=== PATIENT | female | born 1990 | race African-American/Black ===

== ENCOUNTER 2016-06-16 04:26 | Inpatient (IN) | payer OTHER ==
[~2016-06-16] VITALS: Ht 162.6 cm; Wt 75.7 kg
[~2016-06-16 04:26] MED LIST: NITR100C62 PO; PROM25TA10 PO
[2016-06-16] MEDS ORDERED: IV RINGERS,LACTATED 1000ML 1,000 ML IV SCH ×2 (04:53→11:28)
[2016-06-16 05:03] LABS: BILIRUBIN,URINE NEGATIVE (NEG); GLUCOSE,URINE NEGATIVE (NEG); NITRITE,URINE NEGATIVE (NEG); PH,URINE 6.5; PROTEIN,URINE NEGATIVE (NEG-TRACE)
[2016-06-16 05:11] LABS: BARBITURATES NEG (NEG); BENZODIAZEPINES NEG (NEG); CANNABINOIDS NEG (NEG); COCAINE NEG (NEG); METHADONE NEG (NEG); OPIATES NEG (NEG); PHENCYCLIDINE NEG (NEG)
[2016-06-16 05:16] LABS: BACTERIA,URINE MANY /HPF (0-FEW); SQUAMOUS EPITHELIAL CELL,UR MANY /LPF; WBC,URINE TNTC /HPF (0-4)
[2016-06-16 05:17] LABS: ETHANOL, URINE NEG (NEG)
[2016-06-16 10:03] LABS: BASO # 0.1 x10^3/uL (0.0-0.2); BASO % 1 % (0-3); EOS % 1 % (0-3); HEMATOCRIT 32.1 % (36.0-47.0); HEMOGLOBIN 10.9 g/dL (12.0-15.5); LYMPH # 1.3 x10^3/uL (1.0-4.8); LYMPH % 17 % (24-48); MEAN CORPUSCULAR HEMOGLOBIN 31 pg (25-35); MEAN CORPUSCULAR HGB CONC 34 g/dL (31-37); MEAN CORPUSCULAR VOLUME 91 fL (79-100); MONO % 9 % (0-9); NEUT % 73 % (31-73); PLATELET COUNT 136 x10^3/uL (140-400); RED BLOOD COUNT 3.53 x10^6/uL (3.50-5.40); RED CELL DISTRIBUTION WIDTH 12.8 % (11.5-14.5); WHITE BLOOD COUNT 8.1 x10^3/uL (4.0-11.0)
--- NOTE | 2016-06-16 11:15 | PDOC1 ---
OB - History Hx of Present Care: Good Care Ultrasounds: Normal mid trimester US Obstetrical Complications: None Medical Complications: Other (HSV. No current outbreak or lesions.) Past Family/Social History * Past Medical, Surgical, Family and Obstetric Histories reviewed from chart. Rubella: Immune RPR/VDRL: Negative GBS Status: Negative HBsAG: Negative OB - Chief Complaint & HPI Date of Admission: Date of Admission: Jun 16, 2016 at 04:26 Chief Complaint/History : 3 Para: 2 EGA: 37 Reason for admission: active labor Admission Nurse Assessment Rev: Yes Problems: OB - Admission Exam Physical Exam HEENT: Normal Heart: Regular Rate Lungs: Clear Abdomen: Gravid, Non tender, Soft Extremities: Edema Reflexes: Normal Cervical Dilatation: 3cm Effacement: 75% Station: -2 Membranes: Intact Heart Rate: Normal Accelerations: Accelerations Present Decelerations: No decelerations Contractions on Admission: 6-10 Minutes Apart Intensity: Moderate Text A: 37 wks IUP Active labor H/o HSV; 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 NALLELY VASQUEZ Jr, MD Jun 16, 2016 11:15
[2016-06-16] MEDS ORDERED: LIDOCAINE 1% PF 30 ML VIAL. INJ PRN (11:30)
[2016-06-16] MEDS ORDERED: TERBUTALINE 1 MG/ML VIAL. SQ PRN (11:30)
[2016-06-16] MEDS ORDERED: OXYTOCIN 30 UNIT/500 ML PREMIX 500 ML IV PRN ×2 (11:30→15:00)
[2016-06-16] MEDS ORDERED: 0.9 % SODIUM CHLORIDE 10 ML DISP.SYRIN. IV PRN ×2 (11:30→15:00)
[2016-06-16] MEDS: FENTANYL PF 100 MCG/2 ML VIAL. IV PRN ×2 (11:56→13:51)
[2016-06-16] MEDS ORDERED: OXYTOCIN in NORMAL SALINE PREMIX 30 UNIT/500 ML BAG. IV ONE (12:50)
--- NOTE | 2016-06-16 14:52 | PDOC ---
VAGINAL DELIVERY DATE DATE: 06/16/16 TIME: 14:50 : 4 Para: 3 EGA: 37 VAGINAL DELIVERY: VTX VACCUM ASSISTED: No PLACENTA: Spontaneous 8/9 SEX: Female WEIGHT Weight [ 2795 gm] Nuchal Cord: Yes, Times 1 Amniotic Fluid: Clear PAIN: Natural EPISIOTOMY: No EXTENSION: No EBL 300 ml COMPLICATIONS none CONDITION pt. stable Signs of Intrauterine Infectio: None Shoulder Dystocia: No Problems: NALLELY VASQUEZ Jr, MD Jun 16, 2016 14:52
[2016-06-16] MEDS ORDERED: SIMETHICONE 80 MG TAB.CHEW PO PRN (15:00)
[2016-06-16] MEDS ORDERED: IBUPROFEN 800 MG TABLET. PO PRN (15:00)
[2016-06-16] MEDS ORDERED: MAGNESIUM HYDROXIDE 2,400 MG/30 ML ORAL.SUSP. PO PRN (15:00)
[2016-06-16] MEDS ORDERED: ZOLPIDEM 5 MG TABLET. PO PRN (15:00)
[2016-06-16] MEDS ORDERED: DIPHENHYDRAMINE HCL 25 MG CAPSULE PO PRN (15:00)
[2016-06-16] MEDS ORDERED: HYDROCORTISONE 1% TOPICAL OINTMENT 30GM TUBE. TP PRN (15:00)
[2016-06-16] MEDS ORDERED: MAG HYDROX/ALUMINUM HYD/SIMETH 30 ML ORAL.SUSP PO PRN (15:00)
[2016-06-16] MEDS ORDERED: ACETAMINOPHEN 325 MG TABLET. PO PRN (15:00)
[2016-06-16] MEDS ORDERED: MMR per PROTOCOL. MC PRN (15:00)
[2016-06-16] MEDS ORDERED: PHENYLEPH/MINERAL OIL/PETROLAT RECTAL OINTMENT 28GM TUBE. RC PRN (15:00)
[2016-06-16] MEDS ORDERED: BENZOCAINE 20% TOPICAL AEROSOL SPRAY 57GM CAN. TP PRN (15:00)
[2016-06-16] MEDS: IBUPROFEN 800 MG TABLET. PO PRN (17:08)
[2016-06-16 17:58] VITALS: BP 101/72
[2016-06-16 19:35] VITALS: BP 105/53
[2016-06-16] MEDS: OXYCODONE/APAP 5/325 TABLET. PO PRN ×2 (19:35→20:28)
[2016-06-16 23:50] VITALS: BP 89/43
[2016-06-17 04:25] VITALS: BP 94/59
[2016-06-17 04:32] LABS: BASO % 0 % (0-3); EOS % 1 % (0-3); HEMATOCRIT 30.2 % (36.0-47.0); HEMOGLOBIN 10.1 g/dL (12.0-15.5); LYMPH # 1.6 x10^3/uL (1.0-4.8); LYMPH % 14 % (24-48); MEAN CORPUSCULAR HEMOGLOBIN 31 pg (25-35); MEAN CORPUSCULAR HGB CONC 33 g/dL (31-37); MEAN CORPUSCULAR VOLUME 93 fL (79-100); MONO % 10 % (0-9); NEUT % 76 % (31-73); PLATELET COUNT 126 x10^3/uL (140-400); RED BLOOD COUNT 3.26 x10^6/uL (3.50-5.40); RED CELL DISTRIBUTION WIDTH 12.7 % (11.5-14.5); WHITE BLOOD COUNT 11.7 x10^3/uL (4.0-11.0)
[2016-06-17] MEDS: IBUPROFEN 800 MG TABLET. PO PRN (06:33)
[2016-06-17] MEDS: OXYCODONE/APAP 5/325 TABLET. PO PRN ×3 (06:34→20:21)
--- NOTE | 2016-06-17 07:42 | PDOC ---
OB Progress Note Date of Service 06/17/16 Time of Evaluation 0740 Notes Pt. feeling well. NO complaints. Lochia minimal. Breast feeding. Pain controlled. Lab Laboratory Tests Test 06/16/16 04:45 06/16/16 09:30 06/17/16 03:51 Urine Collection Type Unknown Urine Color Yellow Urine Clarity Clear Urine pH 6.5 Urine Specific [place] 1.015 Urine Protein Negativemg/dL (NEG-TRACE) Urine Glucose (UA) Negativemg/dL (NEG) Urine Ketones (Stick) Negativemg/dL (NEG) Urine Blood Moderate (NEG) Urine Nitrite Negative (NEG) Urine Bilirubin Negative (NEG) Urine Urobilinogen Dipstick 1.0mg/dL (0.2 mg/dL) Urine Leukocyte Esterase Large (NEG) Urine RBC 11-20/HPF (0-2) Urine WBC Tntc/HPF (0-4) Urine Squamous Epithelial Cells Many/LPF Urine Bacteria Many/HPF (0-FEW) Urine Mucus Marked/LPF Urine Opiates Screen Neg (NEG) Urine Methadone Screen Neg (NEG) Urine Barbiturates Neg (NEG) Urine Phencyclidine Screen Neg (NEG) Urine Amphetamine/Methamphetamine Neg (NEG) Urine Benzodiazepines Screen Neg (NEG) Urine Cocaine Screen Neg (NEG) Urine Cannabinoids Screen Neg (NEG) Urine Ethyl Alcohol Neg (NEG) White Blood Count 8.1x10^3/uL (4.0-11.0) 11.7x10^3/uL (4.0-11.0) Red Blood Count 3.53x10^6/uL (3.50-5.40) 3.26x10^6/uL (3.50-5.40) Hemoglobin 10.9g/dL (12.0-15.5) 10.1g/dL (12.0-15.5) Hematocrit 32.1% (36.0-47.0) 30.2% (36.0-47.0) Mean Corpuscular Volume 91fL (79-100) 93fL (79-100) Mean Corpuscular Hemoglobin 31pg (25-35) 31pg (25-35) Mean Corpuscular Hemoglobin Concent 34g/dL (31-37) 33g/dL (31-37) Red Cell Distribution Width 12.8% (11.5-14.5) 12.7% (11.5-14.5) Platelet Count 136x10^3/uL (140-400) 126x10^3/uL (140-400) Neutrophils (%) (Auto) 73% (31-73) 76% (31-73) Lymphocytes (%) (Auto) 17% (24-48) 14% (24-48) Monocytes (%) (Auto) 9% (0-9) 10% (0-9) Eosinophils (%) (Auto) 1% (0-3) 1% (0-3) Basophils (%) (Auto) 1% (0-3) 0% (0-3) Neutrophils # (Auto) 5.9x10^3uL (1.8-7.7) 8.8x10^3uL (1.8-7.7) Lymphocytes # (Auto) 1.3x10^3/uL (1.0-4.8) 1.6x10^3/uL (1.0-4.8) Monocytes # (Auto) 0.7x10^3/uL (0.0-1.1) 1.1x10^3/uL (0.0-1.1) Eosinophils # (Auto) 0.1x10^3/uL (0.0-0.7) 0.1x10^3/uL (0.0-0.7) Basophils # (Auto) 0.1x10^3/uL (0.0-0.2) 0.0x10^3/uL (0.0-0.2) RPR Titer Additional Testing Non reactive (Non Reactive) Laboratory Tests Test 06/16/16 09:30 06/17/16 03:51 White Blood Count 8.1x10^3/uL (4.0-11.0) 11.7x10^3/uL (4.0-11.0) Red Blood Count 3.53x10^6/uL (3.50-5.40) 3.26x10^6/uL (3.50-5.40) Hemoglobin 10.9g/dL (12.0-15.5) 10.1g/dL (12.0-15.5) Hematocrit 32.1% (36.0-47.0) 30.2% (36.0-47.0) Mean Corpuscular Volume 91fL (79-100) 93fL (79-100) Mean Corpuscular Hemoglobin 31pg (25-35) 31pg (25-35) Mean Corpuscular Hemoglobin Concent 34g/dL (31-37) 33g/dL (31-37) Red Cell Distribution Width 12.8% (11.5-14.5) 12.7% (11.5-14.5) Platelet Count 136x10^3/uL (140-400) 126x10^3/uL (140-400) Neutrophils (%) (Auto) 73% (31-73) 76% (31-73) Lymphocytes (%) (Auto) 17% (24-48) 14% (24-48) Monocytes (%) (Auto) 9% (0-9) 10% (0-9) Eosinophils (%) (Auto) 1% (0-3) 1% (0-3) Basophils (%) (Auto) 1% (0-3) 0% (0-3) Neutrophils # (Auto) 5.9x10^3uL (1.8-7.7) 8.8x10^3uL (1.8-7.7) Lymphocytes # (Auto) 1.3x10^3/uL (1.0-4.8) 1.6x10^3/uL (1.0-4.8) Monocytes # (Auto) 0.7x10^3/uL (0.0-1.1) 1.1x10^3/uL (0.0-1.1) Eosinophils # (Auto) 0.1x10^3/uL (0.0-0.7) 0.1x10^3/uL (0.0-0.7) Basophils # (Auto) 0.1x10^3/uL (0.0-0.2) 0.0x10^3/uL (0.0-0.2) RPR Titer Additional Testing Non reactive (Non Reactive) Medications Current Medications Lactated Ringer's (Iv Lactated Ringers) 1,000 ml @ 125 mls/hr Q8H IV Last administered on 06/16/16t 11:56; Start 06/16/16 at 04:53; Stop 06/16/16 at 18:04; Status DC Sodium Chloride 3 ml 3 ml QSHIFT PRN IV AFTER MEDS AND BLOOD DRAWS; Start at 11:30; Stop 06/16/16 at 18:04; Status DC Lactated Ringer's (Iv Lactated Ringers) 1,000 ml @ 125 mls/hr Q8H IV ; Start at 11:28; Stop 06/16/16 at 18:04; Status DC Fentanyl Citrate (Fentanyl 2ml Vial) 100 mcg PRN Q30MIN PRN IV Severe pain Last administered on 06/16/16 13:51; Start 06/16/16 at 11:30; Stop 06/16/16 at 18: 04; Status DC Terbutaline Sulfate (Brethine) 0.25 mg 1X PRN PRN SQ SEE COMMENTS; Start at 11:30; Stop 06/16/16 at 18:04; Status DC Lidocaine HCl 30 ml 30 ml 1X PRN PRN INJ SEE COMMENTS; Start 06/16/16 at 11:30; Stop 06/16/16 at 18:04; Status DC Oxytocin/Sodium Chloride (Oxytocin Premix Infusion) 500 ml @ 0 mls/hr CONT PRN PRN IV Post delivery bleeding; Start 06/16/16 at 11:30; Stop 06/16/16 at 18:04; Status DC Ibuprofen (Motrin) 800 mg PRN Q6HRS PRN PO PAIN Last administered on 06/17/16 06:33; Start 06/16/16 at 11:30 Sodium Chloride 10 ml 10 ml QSHIFT PRN IV AFTER MEDS AND BLOOD DRAWS; Start 06/16/16 at 15:00; Stop 06/16/16 at 18:04; Status DC Oxytocin/Sodium Chloride (Oxytocin Premix Infusion) 500 ml @ 62.5 mls/hr CONT PRN IV SEE I/O RECORD; Start 06/16/16 at 15:00; Stop 06/16/16 at 18:04; Status DC Acetaminophen (Tylenol) 650 mg PRN Q6HRS PRN PO MILD PAIN / TEMP; Start at 15:00 Ibuprofen (Motrin) 800 mg PRN Q8HRS PRN PO INFLAMMATION/PAIN PREVENTION; Start 06/16/16 at 15:00 Docusate Sodium (Colace) 100 mg PRN BID PRN PO CONSTIPATION; Start 06/16/16 at 15:00 Magnesium Hydroxide (Milk Of Magnesia) 2,400 mg PRN DAILY PRN PO CONSTIPATION; Start 06/16/16 at 15:00 Al Hydrox/Mg Hydrox/Simethicone (Mylanta Plus Xs) 30 ml PRN Q4HRS PRN PO HEARTBURN / GAS; Start 06/16/16 at 15:00 Simethicone (Gas-X) 80 mg PRN AFTMEALHC PRN PO GAS / BLOATING; Start 06/16/16 at 15:00 Diphenhydramine HCl (Benadryl) 25 mg PRN Q6HRS PRN PO ITCHING; Start 06/16/16 at 15:00 Benzocaine (Americaine) 1 spray PRN QID PRN TP TOPICAL PAIN Last administered on 06/16/16 17:09; Start 06/16/16 at 15:00 Phenyleph/Shark Oil/Min Oil/Petrol (Preparation H) 1 josette PRN QID PRN RC RECTAL PAIN; Start 06/16/16 at 15:00 Hydrocortisone (Cortaid) 1 josette PRN QID PRN TP PERINEAL PAIN; Start 06/16/16 at 15:00 Ferrous Sulfate (Feosol) 325 mg BIDWMEALS PO ; Start 06/17/16 at 08:00 Zolpidem Tartrate (Ambien) 5 mg PRN QHS PRN PO INSOMNIA, MAY REPEAT X1; Start 06/16/16 at 15:00 Info (Do NOT chart on this placeholder) 1 ea 1X PRN PRN MC SEE COMMENTS; Start 06/16/16 at 15:00; Stop 06/16/16 at 18:04; Status DC Info (Do NOT chart on this placeholder) 1 ea 1X PRN PRN MC SEE COMMENTS; Start 06/16/16 at 15:00; Stop 06/16/16 at 18:04; Status DC Oxycodone/ Acetaminophen (Percocet 5/325) 2 tab PRN Q4HRS PRN PO MODERATE PAIN , SEVERE PAIN Last administered on 06/17/16 06:34; Start 06/16/16 at 15:00 Active Scripts Active Promethazine Hcl 25 Mg Tablet 1 Tab PO PRN Q6HRS Exam Abd: soft, non tender, fundus firm Assessment PPD#1 s/p Plan of Care: Continue current Tx, Mgmt NALLELY VASQUEZ Jr, MD Jun 17, 2016 07:42
[2016-06-17] MEDS ORDERED: FERROUS SULFATE 325 MG TABLET PO SCH (08:00)
[2016-06-17 10:34] VITALS: BP 99/80
[2016-06-17] MEDS: DOCUSATE SODIUM 100 MG CAPSULE PO PRN ×2 (12:35→20:21)
[2016-06-17 20:55] VITALS: BP 121/81
[2016-06-18] MEDS: OXYCODONE/APAP 5/325 TABLET. PO PRN ×2 (00:18→11:19)
[2016-06-18 00:30] VITALS: BP 104/54
[2016-06-18 05:35] VITALS: BP 99/60
[2016-06-18 11:10] VITALS: BP 104/62
[2016-06-18] MEDS: IBUPROFEN 800 MG TABLET. PO PRN (11:18)
--- NOTE | 2016-06-18 14:31 | DISCH ---
DISCHARGE INSTRUCTIONS Condition on Discharge Condition on Discharge: Stable Activity After Discharge Activity Instructions for Disc: Activity as tolerated Lifting Instructions after Dis: No heavy lifting Driving Instructions after Dis: Do not drive today Diet after Discharge Diet after Discharge: Regular Contacting the [facility] after DC Call your doctor for: Concerns you may have Follow-Up Follow up with: Dr. Byers in 6 weeks NALLELY BYERS Jr, MD Jun 18, 2016 14:31
--- NOTE | 2016-06-18 14:31 | PDOC ---
OB Progress Note Date of Service 06/18/16 Time of Evaluation 1430 Notes Pt. feeling well. NO complaints. Lab Laboratory Tests Test 06/17/16 03:51 White Blood Count 11.7x10^3/uL (4.0-11.0) Red Blood Count 3.26x10^6/uL (3.50-5.40) Hemoglobin 10.1g/dL (12.0-15.5) Hematocrit 30.2% (36.0-47.0) Mean Corpuscular Volume 93fL (79-100) Mean Corpuscular Hemoglobin 31pg (25-35) Mean Corpuscular Hemoglobin Concent 33g/dL (31-37) Red Cell Distribution Width 12.7% (11.5-14.5) Platelet Count 126x10^3/uL (140-400) Neutrophils (%) (Auto) 76% (31-73) Lymphocytes (%) (Auto) 14% (24-48) Monocytes (%) (Auto) 10% (0-9) Eosinophils (%) (Auto) 1% (0-3) Basophils (%) (Auto) 0% (0-3) Neutrophils # (Auto) 8.8x10^3uL (1.8-7.7) Lymphocytes # (Auto) 1.6x10^3/uL (1.0-4.8) Monocytes # (Auto) 1.1x10^3/uL (0.0-1.1) Eosinophils # (Auto) 0.1x10^3/uL (0.0-0.7) Basophils # (Auto) 0.0x10^3/uL (0.0-0.2) Medications Current Medications Lactated Ringer's (Iv Lactated Ringers) 1,000 ml @ 125 mls/hr Q8H IV Last administered on 06/16/16t 11:56; Start 06/16/16 at 04:53; Stop 06/16/16 at 18:04; Status DC Sodium Chloride 3 ml 3 ml QSHIFT PRN IV AFTER MEDS AND BLOOD DRAWS; Start at 11:30; Stop 06/16/16 at 18:04; Status DC Lactated Ringer's (Iv Lactated Ringers) 1,000 ml @ 125 mls/hr Q8H IV ; Start at 11:28; Stop 06/16/16 at 18:04; Status DC Fentanyl Citrate (Fentanyl 2ml Vial) 100 mcg PRN Q30MIN PRN IV Severe pain Last administered on 06/16/16 13:51; Start 06/16/16 at 11:30; Stop 06/16/16 at 18: 04; Status DC Terbutaline Sulfate (Brethine) 0.25 mg 1X PRN PRN SQ SEE COMMENTS; Start at 11:30; Stop 06/16/16 at 18:04; Status DC Lidocaine HCl 30 ml 30 ml 1X PRN PRN INJ SEE COMMENTS; Start 06/16/16 at 11:30; Stop 06/16/16 at 18:04; Status DC Oxytocin/Sodium Chloride (Oxytocin Premix Infusion) 500 ml @ 0 mls/hr CONT PRN PRN IV Post delivery bleeding; Start 06/16/16 at 11:30; Stop 06/16/16 at 18:04; Status DC Ibuprofen (Motrin) 800 mg PRN Q6HRS PRN PO PAIN Last administered on 06/18/16 11:18; Start 06/16/16 at 11:30 Sodium Chloride 10 ml 10 ml QSHIFT PRN IV AFTER MEDS AND BLOOD DRAWS; Start 06/16/16 at 15:00; Stop 06/16/16 at 18:04; Status DC Oxytocin/Sodium Chloride (Oxytocin Premix Infusion) 500 ml @ 62.5 mls/hr CONT PRN IV SEE I/O RECORD; Start 06/16/16 at 15:00; Stop 06/16/16 at 18:04; Status DC Acetaminophen (Tylenol) 650 mg PRN Q6HRS PRN PO MILD PAIN / TEMP; Start at 15:00 Ibuprofen (Motrin) 800 mg PRN Q8HRS PRN PO INFLAMMATION/PAIN PREVENTION Last administered on 06/18/16 00:17; Start 06/16/16 at 15:00 Docusate Sodium (Colace) 100 mg PRN BID PRN PO CONSTIPATION Last administered on 06/17/16 20:21; Start 06/16/16 at 15:00 Magnesium Hydroxide (Milk Of Magnesia) 2,400 mg PRN DAILY PRN PO CONSTIPATION; Start 06/16/16 at 15:00 Al Hydrox/Mg Hydrox/Simethicone (Mylanta Plus Xs) 30 ml PRN Q4HRS PRN PO HEARTBURN / GAS; Start 06/16/16 at 15:00 Simethicone (Gas-X) 80 mg PRN AFTMEALHC PRN PO GAS / BLOATING; Start 06/16/16 at 15:00 Diphenhydramine HCl (Benadryl) 25 mg PRN Q6HRS PRN PO ITCHING; Start 06/16/16 at 15:00 Benzocaine (Americaine) 1 spray PRN QID PRN TP TOPICAL PAIN Last administered on 06/16/16 17:09; Start 06/16/16 at 15:00 Phenyleph/Shark Oil/Min Oil/Petrol (Preparation H) 1 josette PRN QID PRN RC RECTAL PAIN; Start 06/16/16 at 15:00 Hydrocortisone (Cortaid) 1 josette PRN QID PRN TP PERINEAL PAIN; Start 06/16/16 at 15:00 Ferrous Sulfate (Feosol) 325 mg BIDWMEALS PO ; Start 06/17/16 at 08:00; Stop 06/17 at 08:00; Status DC Zolpidem Tartrate (Ambien) 5 mg PRN QHS PRN PO INSOMNIA, MAY REPEAT X1; Start 06/16/16 at 15:00 Info (Do NOT chart on this placeholder) 1 ea 1X PRN PRN MC SEE COMMENTS; Start 06/16/16 at 15:00; Stop 06/16/16 at 18:04; Status DC Info (Do NOT chart on this placeholder) 1 ea 1X PRN PRN MC SEE COMMENTS; Start 06/16/16 at 15:00; Stop 06/16/16 at 18:04; Status DC Oxycodone/ Acetaminophen (Percocet 5/325) 2 tab PRN Q4HRS PRN PO MODERATE PAIN , SEVERE PAIN Last administered on 06/18/16 11:19; Start 06/16/16 at 15:00 Oxytocin/Sodium Chloride (Oxytocin Premix Infusion) 30 unit STK-MED ONCE IV ; Start 06/16/16 at 12:50; Stop 06/17/16 at 08:14; Status DC Active Scripts Active Promethazine Hcl 25 Mg Tablet 1 Tab PO PRN Q6HRS Exam Abd: soft, non tender fundus firm Assessment PPD#2 s/p Plan of Care: See new orders (D/c home.) NALLELY VASQUEZ Jr, MD Jun 18, 2016 14:31
[2016-06-18] MEDS ORDERED: IBUP-1060 PO (14:32)
[2016-06-18] MEDS ORDERED: OXYC-323 PO (14:32)
[2016-06-18 15:36] VITALS: BP 104/61
== END 2016-06-18 15:15 | disposition home or self-care (01) | DRG 775 ==
LOC: 3 SO LND 04:26 → OBSVTOIN 04:26 → 3 NORTH 17:53
PROVIDERS: ADMIT Obstetrics & Gynecology; ATTEND Obstetrics & Gynecology
PROC: 10E0XZZ Delivery of Products of Conception, External Approach (ICD-10-PCS; principal; 2016-06-16)
DX: O69.81X0 Labor and delivery complicated by cord around neck, without compression, not applicable or unspecified (principal); Z3A.37 37 weeks gestation of pregnancy; Z37.0 Single live birth
CPT/HCPCS: 36415; 81001; 85027; 86593; 86850; 86900; 86901; 87086; G0481; J2590; J3010; J7120

== ENCOUNTER 2016-11-28 13:21 | Emergency (ER) | payer OTHER ==
[~2016-11-28] VITALS: Ht 162.6 cm; Wt 68.0 kg
[~2016-11-28 13:21] MED LIST changes: +IBUP-1060 PO; +OXYC-323 PO
[2016-11-28 13:40] VITALS: BP 111/63
[2016-11-28 14:24] LABS: NEGATIVE OBC STREP NEG; POSITIVE OBC STREP POS
[2016-11-28] MEDS ORDERED: PENI500T PO (14:27)
--- NOTE | 2016-11-28 14:27 | PHYS DOC ---
Past Medical History Past Medical History: No Pertinent History Past Surgical History: Other Additional Past Surgical Histo: R salpingectomy Alcohol Use: None Drug Use: None Adult General Chief Complaint Chief Complaint: Congestion HPI HPI Patient is a 26 year old female who presents with sore throat and congestion for one week. Patient denies any fever. Patient is in the ED with 2 other family members with the same complaint. Review of Systems Review of Systems Constitutional: See history of present illness Eyes: Denies change in visual acuity, redness, or eye pain [] HENT: nasal congestion and sore throat [] Respiratory: Denies cough or shortness of breath [] Cardiovascular: No additional information not addressed in HPI [] GI: Denies abdominal pain, nausea, vomiting, bloody stools or diarrhea [] : Denies dysuria or hematuria [] Musculoskeletal: Denies back pain or joint pain [] Integument: Denies rash or skin lesions [] Neurologic: Denies headache, focal weakness or sensory changes [] Endocrine: Denies polyuria or polydipsia [] Allergies Allergies Allergies Coded Allergies Type Severity Reaction Last Updated Verified ondansetron Adverse Reaction Intermediate nausea 11/15/15 Yes Physical Exam Physical Exam Constitutional: Well developed, well nourished, no acute distress, non-toxic appearance. [] HENT: Normocephalic, atraumatic, bilateral external ears normal, oropharynx moist, no oral exudates, nose normal. [] posterior pharynx with mild erythema no exudate Eyes: PERRLA, EOMI, conjunctiva normal, no discharge. [] Neck: Normal range of motion, no tenderness, supple, no stridor. [] Cardiovascular:Heart rate regular rhythm, no murmur [] Lungs & Thorax: Bilateral breath sounds clear to auscultation [] Abdomen: Bowel sounds normal, soft, no tenderness, no masses, no pulsatile masses. [] Skin: Warm, dry, no erythema, no rash. [] Back: No tenderness, no CVA tenderness. [] Extremities: No tenderness, no cyanosis, no clubbing, ROM intact, no edema. [] Neurologic: Alert and oriented X 3, normal motor function, normal sensory function, no focal deficits noted. [] Psychologic: Affect normal, judgement normal, mood normal. [] Current Patient Data Vital Signs Vital Signs Date Time Temp Pulse Resp B/P (MAP) Pulse Ox O2 Delivery O2 Flow Rate FiO2 11/28/16 13:40 98.5 77 16 111/63 (79) 97 Room Air 98.5 Lab Values Laboratory Tests Test 11/28/16 14:00 Group A Streptococcus Rapid Positive (NEGATIVE) EKG EKG [] Radiology/Procedures Radiology/Procedures [] Course & Med Decision Making Course & Med Decision Making Pertinent Labs and Imaging studies reviewed. (See chart for details) Patient is in the ED with sore throat and nasal congestion. Positive rapid strep. Discharged with amoxicillin. Tylenol Motrin for pain or fever. Follow-up with PCP in 1-2 weeks. Dragon Disclaimer Dragon Disclaimer This electronic medical record was generated, in whole or in part, using a voice recognition dictation system. Departure Departure Impression: Primary Impression: Streptococcal pharyngitis Additional Impression: Upper respiratory infection Disposition: 01 HOME, SELF-CARE Condition: STABLE Referrals: NO PCP (PCP) Follow-up with your doctor in 1-2 weeks Patient Instructions: Strep Throat, Group A Streptococcus Additional Instructions: You were seen for strep infection. Ensure you complete your antibiotics. Take Tylenol /Motrin for pain or fever. Use saltwater gargles. Follow-up with the primary care doctor in 1-2 weeks. Scripts Penicillin V Potassium (PENICILLIN V POTASSIUM) 500 Mg Tablet 1 TAB PO TID, #30 TAB Prov: JULIO C VALLE APRN 11/28/16 Problem Qualifiers Additional Impression: Upper respiratory infection URI type: unspecified URI Qualified Codes: J06.9 - Acute upper respiratory infection, unspecified JULIO C VALLE APRN Nov 28, 2016 14:27
== END 2016-11-28 14:30 | disposition home or self-care (01) ==
LOC: ER 13:21
DX: J02.0 Streptococcal pharyngitis (principal); J06.9 Acute upper respiratory infection, unspecified; Z88.8 Allergy status to other drugs, medicaments and biological substances
CPT/HCPCS: 87880; 99283

== ENCOUNTER 2017-08-10 17:39 | Emergency (ER) | payer OTHER ==
[2017-08-10] MEDS: HYDROcodone/APAP 5/325MG 1 TAB TABLET PO (17:58)
[2017-08-10 18:01] LABS: URINE HCG POC HCG POSITIVE (Negative)
[2017-08-10 18:03] LABS: BILIRUBIN,URINE NEGATIVE (NEG); CLARITY,URINE CLOUDY; COLOR,URINE YELLOW; GLUCOSE,URINE NEGATIVE (NEG); NITRITE,URINE NEGATIVE (NEG); PH,URINE 6.5; PROTEIN,URINE NEGATIVE (NEG-TRACE)
[2017-08-10 18:11] LABS: BACTERIA,URINE 0 /HPF (0-FEW); RBC,URINE 0 /HPF (0-2); SQUAMOUS EPITHELIAL CELL,UR OCC /LPF; WBC,URINE OCC /HPF (0-4)
[2017-08-10 19:05] LABS: ADD MAN DIFF? NO
[2017-08-10 19:12] LABS: BASO % 1 % (0-3); EOS # 0.2 x10^3/uL (0.0-0.7); EOS % 3 % (0-3); HEMOGLOBIN 12.1 g/dL (12.0-15.5); LYMPH # 2.8 x10^3/uL (1.0-4.8); LYMPH % 43 % (24-48); MEAN CORPUSCULAR HEMOGLOBIN 29 pg (25-35); MEAN CORPUSCULAR HGB CONC 34 g/dL (31-37); MEAN CORPUSCULAR VOLUME 86 fL (79-100); MONO # 0.5 x10^3/uL (0.0-1.1); MONO % 8 % (0-9); NEUT % 45 % (31-73); PLATELET COUNT 164 x10^3/uL (140-400); RED BLOOD COUNT 4.19 x10^6/uL (3.50-5.40); RED CELL DISTRIBUTION WIDTH 15.3 % (11.5-14.5); WHITE BLOOD COUNT 6.5 x10^3/uL (4.0-11.0)
[2017-08-10 19:25] LABS: ANION GAP 11 (6-14); BLOOD UREA NITROGEN 7 mg/dL (7-20); BUN/CREATININE RATIO 12 (6-20); CALCIUM 8.9 mg/dL (8.5-10.1); CARBON DIOXIDE 25 mmol/L (21-32); CHLORIDE 106 mmol/L (98-107); CREATININE 0.6 mg/dL (0.6-1.0); GFR 146.2; GLUCOSE 85 mg/dL (70-99); POTASSIUM 3.6 mmol/L (3.5-5.1); SODIUM 142 mmol/L (136-145)
[2017-08-10 19:29] LABS: ALBUMIN 3.9 g/dL (3.4-5.0); ALK PHOS 60 U/L (46-116); ALT (SGPT) 13 U/L (14-59); AST (SGOT) 12 U/L (15-37); TOTAL BILIRUBIN 0.5 mg/dL (0.2-1.0); TOTAL PROTEIN 7.8 g/dL (6.4-8.2)
[2017-08-10] MEDS: ACETAMINOPHEN 325 MG TABLET. PO (19:55)
== END 2017-08-10 20:13 | disposition home or self-care (01) ==
LOC: ER 17:39
DX: M54.2 Cervicalgia (principal); R51 Headache; V49.49XA Driver injured in collision with other motor vehicles in traffic accident, initial encounter; Y93.89 Activity, other specified; Y99.8 Other external cause status; Y92.488 Other paved roadways as the place of occurrence of the external cause
CPT/HCPCS: 36415; 76817; 80053; 81001; 81025; 84702; 85025; 86900; 86901; 99285-25

== ENCOUNTER 2017-10-11 14:56 | Emergency (ER) | payer OTHER ==
[2017-10-11 15:16] LABS: URINE HCG POC HCG POSITIVE (Negative)
[2017-10-11 15:20] LABS: BILIRUBIN,URINE NEGATIVE (NEG); CLARITY,URINE CLEAR; COLOR,URINE YELLOW; GLUCOSE,URINE 100 mg/dL (NEG); NITRITE,URINE NEGATIVE (NEG); PROTEIN,URINE NEGATIVE (NEG-TRACE)
[2017-10-11 15:35] LABS: BACTERIA,URINE FEW /HPF (0-FEW); RBC,URINE OCC /HPF (0-2); SQUAMOUS EPITHELIAL CELL,UR MOD /LPF
[2017-10-11 16:17] LABS: ADD MAN DIFF? NO
[2017-10-11 16:24] LABS: BASO % 0 % (0-3); EOS # 0.1 x10^3/uL (0.0-0.7); EOS % 2 % (0-3); HEMATOCRIT 34.4 % (36.0-47.0); HEMOGLOBIN 11.7 g/dL (12.0-15.5); LYMPH # 1.6 x10^3/uL (1.0-4.8); LYMPH % 22 % (24-48); MEAN CORPUSCULAR HEMOGLOBIN 30 pg (25-35); MEAN CORPUSCULAR HGB CONC 34 g/dL (31-37); MEAN CORPUSCULAR VOLUME 89 fL (79-100); MONO # 0.6 x10^3/uL (0.0-1.1); MONO % 8 % (0-9); NEUT # 5.2 x10^3uL (1.8-7.7); NEUT % 68 % (31-73); PLATELET COUNT 172 x10^3/uL (140-400); RED BLOOD COUNT 3.85 x10^6/uL (3.50-5.40); RED CELL DISTRIBUTION WIDTH 14.8 % (11.5-14.5); WHITE BLOOD COUNT 7.6 x10^3/uL (4.0-11.0)
[2017-10-11 16:36] LABS: ANION GAP 10 (6-14); BLOOD UREA NITROGEN 8 mg/dL (7-20); CALCIUM 8.9 mg/dL (8.5-10.1); CARBON DIOXIDE 25 mmol/L (21-32); CHLORIDE 103 mmol/L (98-107); CREATININE 0.7 mg/dL (0.6-1.0); GFR 122.4; GLUCOSE 90 mg/dL (70-99); POTASSIUM 3.7 mmol/L (3.5-5.1); SODIUM 138 mmol/L (136-145)
[2017-10-13 19:16] LABS: CHLAMYDIA PROBE Negative (Negative); GC PROBE Negative (Negative)
== END 2017-10-11 17:11 | disposition home or self-care (01) ==
LOC: ER 17:11
DX: O23.41 Unspecified infection of urinary tract in pregnancy, first trimester (principal); O46.91 Antepartum hemorrhage, unspecified, first trimester; Z3A.12 12 weeks gestation of pregnancy; Z88.5 Allergy status to narcotic agent
CPT/HCPCS: 36415; 76801; 80048; 81001; 81025; 84702; 85025; 86850; 86900; 86901; 87086; 87491; 87591; 99285-25; Q0111

== ENCOUNTER 2018-04-03 15:54 | Observation (INO) | payer OTHER ==
[2017-10-11 17:12] VITALS: BP 105/55
[~2018-04-03 15:54] MED LIST changes: +CEPH500T PO; -OXYC-323 PO; +OXYC1TAB15 PO; +PENI500T PO
[2018-04-03 16:58] LABS: BILIRUBIN,URINE NEGATIVE (NEG); CLARITY,URINE CLEAR; COLOR,URINE YELLOW; NITRITE,URINE NEGATIVE (NEG); PH,URINE 7.5; PROTEIN,URINE NEGATIVE (NEG-TRACE); UROBILINOGEN,URINE 0.2 mg/dL (0.2 mg/dL)
[2018-04-03 17:05] LABS: AMNIO PT NEGATIVE; BARBITURATES NEG (NEG); BENZODIAZEPINES NEG (NEG); CANNABINOIDS POS (NEG); COCAINE NEG (NEG); METHADONE NEG (NEG); OPIATES NEG (NEG); PHENCYCLIDINE NEG (NEG)
[2018-04-03 17:06] LABS: AMPHETAMINE/METHAMPHETAMINE NEG (NEG)
[2018-04-03 17:09] LABS: RBC,URINE 0 /HPF (0-2); SQUAMOUS EPITHELIAL CELL,UR MOD /LPF
[2018-04-03 17:10] LABS: BACTERIA,URINE MODERATE /HPF (0-FEW)
[2018-04-08] MEDS ORDERED: IBUP-1027 PO (08:59)
== END 2018-04-03 19:00 | disposition home or self-care (01) ==
LOC: 3 SO LND 15:54
PROVIDERS: ADMIT Obstetrics & Gynecology; ATTEND Obstetrics & Gynecology
DX: O62.9 Abnormality of forces of labor, unspecified (principal); Z3A.37 37 weeks gestation of pregnancy
CPT/HCPCS: 36415; 80307; 81001; 84112; 87086; G0378; G0379

== ENCOUNTER 2018-04-05 16:19 | Observation (INO) | payer OTHER ==
[2017-10-11 17:12] VITALS: BP 105/55
[2018-04-05] MEDS ORDERED: IV RINGERS,LACTATED 1000ML 1,000 ML IV SCH (16:26)
[2018-04-05 16:51] LABS: BILIRUBIN,URINE NEGATIVE (NEG); CLARITY,URINE CLEAR; COLOR,URINE YELLOW; NITRITE,URINE NEGATIVE (NEG); PROTEIN,URINE NEGATIVE (NEG-TRACE); UROBILINOGEN,URINE 0.2 mg/dL (0.2 mg/dL)
[2018-04-05 17:00] LABS: BACTERIA,URINE MODERATE /HPF (0-FEW); RBC,URINE OCC /HPF (0-2); SQUAMOUS EPITHELIAL CELL,UR MOD /LPF; WBC,URINE OCC /HPF (0-4)
--- NOTE | 2018-04-05 17:43 | RAD ---
Examination: OB LIMITED History: LIMITED PNC Comparison/Correlation: None Findings: Limited OB ultrasound exam was performed. Single living intrauterine gestation is present with heart rate of 149 bpm. Amniotic fluid index of 11.6 cm noted. Cephalic lie noted. Four-chamber heart is identified. Biparietal diameter is 9.1 cm corresponding to 37 weeks 0 days gestation. Head circumference is 31.4 cm corresponding to 35 weeks 2 days gestation. Abdominal circumference is 30.5 cm corresponding to 34 weeks 2 day gestation. Femur length is 7.5 cm corresponding to 38 weeks 1 day gestation. Head circumference to abdominal circumference ratio is 1.03. Estimated weight is 2773 g. Gestational age is 36 weeks 2 days. Sonographic EDC is 05/01/2018. This is greater than the EDC by last menstrual period which is 04/19/2018. Impression: Single living intrauterine gestation with cephalic lie. Average ultrasound age of 36 weeks 2 days. This is 12 days less than age by last menstrual period. Electronically signed by: Juan Cervantes MD (04/05/2018 5:40 PM) [facility]
[2018-04-08] MEDS ORDERED: IBUP-1027 PO (08:59)
== END 2018-04-05 19:00 | disposition home or self-care (01) ==
LOC: 3 SO LND 16:19
PROVIDERS: ADMIT Obstetrics & Gynecology; ATTEND Obstetrics & Gynecology
DX: O62.9 Abnormality of forces of labor, unspecified (principal); Z3A.38 38 weeks gestation of pregnancy
CPT/HCPCS: 76815; 81001; 87086; G0378; G0379

== ENCOUNTER 2018-10-30 22:14 | Emergency (ER) | payer MEDICAID, OTHER ==
[~2018-10-30] VITALS: Ht 162.6 cm; Wt 55.8 kg
[~2018-10-30 22:14] MED LIST changes: +IBUP-1027 PO
[2018-10-30 22:55] VITALS: BP 93/58
--- NOTE | 2018-10-30 22:57 | PHYS DOC ---
Past Medical History Past Medical History: Other Additional Past Medical Histor: ECTOPIC R TUBE Past Surgical History: Other Additional Past Surgical Histo: R salpingectomy Alcohol Use: None Drug Use: None Adult General Chief Complaint Chief Complaint: SYNCOPE HPI HPI Patient is a 28 year old [f__sex] who presents with [] Review of Systems Review of Systems Constitutional: Denies fever or chills [] Eyes: Denies change in visual acuity, redness, or eye pain [] HENT: Denies nasal congestion or sore throat [] Respiratory: Denies cough or shortness of breath [] Cardiovascular: No additional information not addressed in HPI [] GI: Denies abdominal pain, nausea, vomiting, bloody stools or diarrhea [] : Denies dysuria or hematuria [] Musculoskeletal: Denies back pain or joint pain [] Integument: Denies rash or skin lesions [] Neurologic: Denies headache, focal weakness or sensory changes [] Endocrine: Denies polyuria or polydipsia [] All other systems were reviewed and found to be within normal limits, except as documented in this note. Allergies Allergies Allergies Coded Allergies Type Severity Reaction Last Updated Verified ondansetron Adverse Reaction Intermediate nausea 11/15/15 Yes Physical Exam Physical Exam Constitutional: Well developed, well nourished, no acute distress, non-toxic appearance. [] HENT: Normocephalic, atraumatic, bilateral external ears normal, oropharynx moist, no oral exudates, nose normal. [] Eyes: PERRLA, EOMI, conjunctiva normal, no discharge. [] Neck: Normal range of motion, no tenderness, supple, no stridor. [] Cardiovascular:Heart rate regular rhythm, no murmur [] Lungs & Thorax: Bilateral breath sounds clear to auscultation [] Abdomen: Bowel sounds normal, soft, no tenderness, no masses, no pulsatile masses. [] Skin: Warm, dry, no erythema, no rash. [] Back: No tenderness, no CVA tenderness. [] Extremities: No tenderness, no cyanosis, no clubbing, ROM intact, no edema. [] Neurologic: Alert and oriented X 3, normal motor function, normal sensory function, no focal deficits noted. [] Psychologic: Affect normal, judgement normal, mood normal. [] EKG EKG @2237 NSR at 67bpm, NO ST elevation Radiology/Procedures Radiology/Procedures [] Course & Med Decision Making Course & Med Decision Making Pertinent Labs and Imaging studies reviewed. (See chart for details) [] Dragon Disclaimer Dragon Disclaimer This electronic medical record was generated, in whole or in part, using a voice recognition dictation system. Departure Departure Impression: Primary Impression: Vasovagal near syncope Disposition: 01 HOME, SELF-CARE Condition: IMPROVED Referrals: NO PCP (PCP) Patient Instructions: Near-Syncope, [id number] KISHAN SALEEM DO Oct 30, 2018 22:57
--- NOTE | 2018-10-31 07:53 | EKG ---
[facility] [address] [place] [address] Test Date: 2018-10-30 Test Time: 22:37:28 Pat Name: ESTHELA ZAYAS Department: Room: Gender: F Piano Player: : [id number] Requested By: KISHAN SALEEM Order Number: [id number] Reading MD: Measurements Intervals [place] Rate: 67 P: 52 IA: 216 QRS: 64 QRSD: 72 T: 64 QT: 356 QTc: 379 Interpretive Statements SINUS RHYTHM QRS(T) CONTOUR ABNORMALITY CONSIDER ANTEROSEPTAL MYOCARDIAL DAMAGE POSSIBLY ABNORMAL ECG RI6.01 No previous ECG available for comparison
== END 2018-10-30 23:05 | disposition home or self-care (01) ==
LOC: ER 22:14
DX: R55 Syncope and collapse (principal); Z88.8 Allergy status to other drugs, medicaments and biological substances
CPT/HCPCS: 93005; 99283